=== PATIENT | male | born 1995 | race Caucasian/White ===

== ENCOUNTER 2016-08-19 10:08 | Emergency (ER) | payer BC, OTHER ==
[~2016-08-19] VITALS: Ht 190.5 cm; Wt 79.7 kg
[2016-08-19 10:26] VITALS: Ht 190.5 cm; Wt 79.7 kg
[2016-08-19] MEDS ORDERED: DEXAMETHASONE SOD INJ 10 MG/ML VIAL IV ONE (11:00)
[2016-08-19] MEDS ORDERED: SODIUM CHLORIDE 0.9% 1000ML 2,000 ML IV STA (11:00)
[2016-08-19] MEDS ORDERED: KETOROLAC TROMETHAMINE 30 MG/ML VIAL IV STA (11:00)
[2016-08-19] MEDS ORDERED: ACETAMINOPHEN 500 MG TAB PO STA (11:00)
[2016-08-19] MEDS ORDERED: DiphenhydrAMINE HCL 50 MG/ML VIAL IV STA (11:00)
[2016-08-19 11:03] LABS: BASO % 0.2 %; BASO ABS # 0.02 K/uL (0-0.2); COMPLETE YES; EOS % 0.4 %; HEMATOCRIT 45.9 % (42-52); IG% 0.3 %; LYMPH % 10.2 %; LYMPH ABS # 1.15 K/uL (1.2-3.4); MEAN CELL VOLUME 89.6 fL (80-100); MEAN CORPUSCULAR HEMOGLOBIN 30.7 pg (25-34); MEAN CORPUSCULAR HGB CONC 34.2 g/dl (32-36); MEAN PLATELET VOLUME 8.9 fL (7.4-10.4); MONO % 17.8 %; NEUT % 71.1 %; PLATELET COUNT 167 K/uL (130-400); RED BLOOD COUNT 5.12 M/uL (4.7-6.1)
--- NOTE | 2016-08-19 11:06 | EMERGENCY ROOM VISIT NOTE ---
History Report prepared by Nathalie: Abby Mccartney Under the Supervision of: Dr. Rad Hernandez M.D. First contact with patient: 10:53 Chief Complaint: FEVER Stated Complaint: FEVER, SPOTTING ON THROAT, FATIGUE History of Present Illness The patient is a 21 year old male who presents to the Emergency Room with complaints of a persistent fever that began a few days ago. He currently rates his discomfort as a 6/10 in severity. The patient states that he has been experiencing fever and chills the past several days and notes that his symptoms have been worsening. He states that last night he developed a sore throat last night that worsened. The patient states that he has been treating his Tylenol for his fever, noting that his last dose was at 0600 this morning. He additionally associates a headache, lymphadenopathy, and body aches with his symptoms today. The patient denies any neck stiffness, rhinorrhea, nausea, or vomiting. He states that he has a history of a tonsillectomy when he was [age] and denies any history of mono. The patient's girlfriend states that the patient was sick a few weeks ago, but states that he got better. The patient denies any sick contacts. Source of History: patient, spouse/significant other (girlfriend) Onset: a few days ago Position: other (global) Symptom Intensity: 6/10 Quality: other (fever) Timing: worsening, other (persistent) Associated Symptoms: + chills, + headache, + lymphadenopathy, + sorethroat, No nausea, No vomiting Note: Associated Symptoms: body aches. Review of Systems See HPI for pertinent positives & negatives. A total of 10 systems reviewed and were otherwise negative. Past Medical & Surgical Surgical Problems: (1) Hx of tonsillectomy Family History No pertinent family history stated. Social History Smoking Status: Never Smoker Marital Status: single Occupation Status: [employer] student Current/Historical Medications Scheduled Amoxicillin (Amoxil), 500 MG PO TID Prednisone (Prednisone), 50 MG PO DAILY Allergies Coded Allergies: No Known Allergies (Unverified , 08/19/16) Physical Exam Vital Signs Date Time Temp Pulse Resp B/P Pulse Ox O2 Delivery O2 Flow Rate FiO2 08/19/16 14:06 37.6 86 18 97/63 97 08/19/16 12:13 38.1 08/19/16 11:56 97 16 96/56 99 Room Air 08/19/16 10:26 38.2 100 18 122/75 99 Room Air Physical Exam GENERAL: Patient is in mild distress, uncomfortable appearing. Warm to touch. HEENT: Posterior oropharynx is erythematous, exudative. No acute trauma, normocephalic atraumatic, mucous membranes moist, no nasal congestion, no scleral icterus. NECK: Enlarged anterior neck lymph nodes, no meningitis findings. No stridor, trachea is midline. LUNGS: No dyspnea. Clear to auscultation and equal bilaterally. No wheeze, no rhonchi. HEART: Tachycardic rate and regular rhythm. No murmurs, rubs, gallops appreciated. ABDOMEN: Soft, nontender, bowel sounds positive, no masses appreciated, no peritonitis. BACK: No midline tenderness, no CVA tenderness EXTREMITIES: Normal motion all extremities, no cyanosis, no edema. NEUROLOGIC: Alert and oriented, no acute motor or sensory deficits, no focal weakness, cranial nerves grossly intact. SKIN: No rash, no jaundice, no diaphoresis. Medical Decision & Procedures Laboratory Results 08/19/16 10:38 Red Blood Count 5.12, Mean Corpuscular Volume 89.6, Mean Corpuscular Hemoglobin 30.7, Mean Corpuscular Hemoglobin Concent 34.2, Mean Platelet Volume 8.9, Neutrophils (%) (Auto) 71.1, Lymphocytes (%) (Auto) 10.2, Monocytes (%) (Auto) 17.8, Eosinophils (%) (Auto) 0.4, Basophils (%) (Auto) 0.2, Neutrophils # (Auto ) 8.05, Lymphocytes # (Auto) 1.15, Monocytes # (Auto) 2.01, Eosinophils # (Auto ) 0.04, Basophils # (Auto) 0.02 08/19/16 10:38 Test 08/19/16 10:38 08/19/16 10:40 White Blood Count 11.30 K/uL (4.8-10.8) Red Blood Count 5.12 M/uL (4.7-6.1) Hemoglobin 15.7 g/dL (14.0-18.0) Hematocrit 45.9 % (42-52) Mean Corpuscular Volume 89.6 fL (80-100) Mean Corpuscular Hemoglobin 30.7 pg (25-34) Mean Corpuscular Hemoglobin Concent 34.2 g/dl (32-36) Platelet Count 167 K/uL (130-400) Mean Platelet Volume 8.9 fL (7.4-10.4) Neutrophils (%) (Auto) 71.1 % Lymphocytes (%) (Auto) 10.2 % Monocytes (%) (Auto) 17.8 % Eosinophils (%) (Auto) 0.4 % Basophils (%) (Auto) 0.2 % Neutrophils # (Auto) 8.05 K/uL (1.4-6.5) Lymphocytes # (Auto) 1.15 K/uL (1.2-3.4) Monocytes # (Auto) 2.01 K/uL (0.11-0.59) Eosinophils # (Auto) 0.04 K/uL (0-0.5) Basophils # (Auto) 0.02 K/uL (0-0.2) RDW Standard Deviation 41.3 fL (36.4-46.3) RDW Coefficient of Variation 12.6 % (11.5-14.5) Immature Granulocyte % (Auto) 0.3 % Immature Granulocyte # (Auto) 0.03 K/uL (0.00-0.02) Anion Gap 10.0 mmol/L (3-11) Est Creatinine Clear Calc Drug Dose 94.1 ml/min Estimated GFR () 82.7 Estimated GFR (Non- 71.3 BUN/Creatinine Ratio 13.4 (10-20) Calcium Level 9.3 mg/dl (8.5-10.1) Total Bilirubin 0.7 mg/dl (0.2-1) Aspartate Amino Transf (AST/SGOT) 33 U/L (15-37) Alanine Aminotransferase (ALT/SGPT) 36 U/L (12-78) Alkaline Phosphatase 66 U/L (45-117) Total Protein 8.5 gm/dl (6.4-8.2) Albumin 4.5 gm/dl (3.4-5.0) Globulin 4.0 gm/dl (2.5-4.0) Albumin/Globulin Ratio 1.1 (0.9-2) Chemistry Specimen Hemolysis Monoscreen NEG (NEG) Influenza Type A Antigen Neg for Influ A (NEG) Influenza Type B Antigen Neg for Influ B (NEG) Laboratory results as reviewed by me. Medications Administered Medications (Trade) Dose Ordered Sig/Velia Route Start Time Stop Time Status Last Admin Dose Admin Diphenhydramine HCl (Benadryl Inj) 50 mg NOW STAT IV 08/19/16 11:00 08/19/16 11:02 DC 08/19/16 11:16 50 MG Ketorolac Tromethamine 30 mg 30 mg NOW STAT IV 08/19/16 11:00 08/19/16 11:02 DC 08/19/16 11:17 30 MG Sodium Chloride (Nss 1000ml) 2,000 ml @ 999 mls/hr Q2H1M STAT IV 08/19/16 11:00 08/19/16 13:07 DC 08/19/16 11:16 999 MLS/HR Acetaminophen (Tylenol Tab) 1,000 mg NOW STAT PO 08/19/16 11:00 08/19/16 11:02 DC 08/19/16 11:17 1,000 MG Dexamethasone Sodium Phosphate (Decadron Inj) 10 mg NOW ONCE IV 08/19/16 11:00 08/19/16 11:02 DC 08/19/16 11:16 10 MG Ceftriaxone Sodium (Rocephin Inj) 1 gm NOW STAT IV 08/19/16 12:25 08/19/16 12:27 DC 08/19/16 12:39 1 GM ED Course 1054: The patient was evaluated in room C2. A complete history and physical exam was performed. 1100: Ordered Decadron Inj 10 mg IV, Tylenol Tab 1000 mg PO, Sodium Chloride 2000 ml @ 999 mls/hr IV, Toradol Inj 30 mg IV, Benadryl Inj 50 mg IV. 1225: Ordered Rocephin Inj 1 gm IV. 1226: I reevaluated the patient and he is feeling much better. I discussed the exam findings with him and I discussed the treatment plan. He is agreeable to try antibiotics and steroids as an outpatient. He is ready to go home. Medical Decision Differential: Viral, Tonsillitis, Strep, Moffat, Peritonsillar Abscess, Retropharyngeal Abscess, Otitis, Pneumonia, Influenza, amongst other pathologies entertained. 21 yr old male with exudative pharyngitis associated with fevers, chills, anterior neck lymphadenopathy. Much improved with above. Not septic appearing. No evidence of meningitis. Tonsils removed previously. No evidence of retropharyngeal abscess. Moffat negative. Strep is negative as well. Given all these findings however it seems prudent to start ABX along with steroids for acute pharyngitis. He is looking well, feeling much improved. He is a bit renal insufficient which I assume is secondary to infectious etiology but will add on fluids. Stable no distress and feels comfortable going home. Discussed RTED if worsening or other concerns. Impression Primary Impression: Pharyngitis, acute Additional Impressions: Febrile illness, acute Renal insufficiency Scribe Attestation The scribe's documentation has been prepared under my direction and personally reviewed by me in its entirety. I confirm that the note above accurately reflects all work, treatment, procedures, and medical decision making performed by me. Departure Information Dispostion Home / Self-Care Prescriptions Prednisone (Prednisone) 50 Mg Tab 50 MG PO DAILY for 4 Days, #4 TAB Prov: Rad Hernandez M.D. 08/19/16 Amoxicillin (AMOXIL) 500 Mg Cap 500 MG PO TID, #21 CAP Prov: Rad Hernandez M.D. 08/19/16 Referrals [facility] Services Forms HOME CARE DOCUMENTATION FORM, IMPORTANT VISIT INFORMATION, Work Instructions Patient Instructions ED Strep Pharyngitis Anthony, My [facility] Additional Instructions Keep well hydrated and avoid over exertion. Follow up with your primary provider or [facility] in the next few days for recheck. Problem Qualifiers Primary Impression: Pharyngitis, acute Pharyngitis/tonsillitis etiology: unspecified etiology Qualified Codes: J02.9 - Acute pharyngitis, unspecified
[2016-08-19 11:16] LABS: BUN/CREATININE RATIO 13.4 (10-20); CALCIUM 9.3 mg/dl (8.5-10.1); CREATININE 1.4 mg/dl (0.60-1.40); POTASSIUM 4.6 mmol/L (3.5-5.1)
[2016-08-19 11:27] LABS: ALB/GLOB RATIO 1.1 (0.9-2)
[2016-08-19] MEDS ORDERED: CEFTRIAXONE SOD INJ 1 GM ADDVIAL IV STA (12:25)
[2016-08-19] MEDS ORDERED: PRED50TA PO (12:30)
[2016-08-19] MEDS ORDERED: AMOX500C3 PO (12:30)
[2016-08-19 14:06] VITALS: BP 97/63; PULSE 86; TEMP 37.6; O2SAT 97
== END 2016-08-19 14:07 | disposition home or self-care (01) ==
LOC: C.EDB 10:11 → C.EDC 14:07
DX: J02.9 Acute pharyngitis, unspecified (principal); N28.9 Disorder of kidney and ureter, unspecified; Z98.890 Other specified postprocedural states

== ENCOUNTER 2016-08-22 11:50 | Emergency (ER) | payer OTHER ==
[~2016-08-22] VITALS: Ht 190.5 cm; Wt 78.8 kg
[~2016-08-22 11:50] MED LIST: AMOX500C3 PO; PRED50TA PO
[2016-08-22 12:03] VITALS: TEMP 37.7; Ht 190.5 cm; Wt 78.8 kg
[2016-08-22] MEDS ORDERED: OPTIRAY 320 IV PRN (13:45)
[2016-08-22 13:55] LABS: BASO % 0.3 %; BASO ABS # 0.02 K/uL (0-0.2); COMPLETE YES; EOS % 0.1 %; HEMATOCRIT 41.2 % (42-52); IG% 0.3 %; LYMPH % 17.6 %; LYMPH ABS # 1.31 K/uL (1.2-3.4); MEAN CELL VOLUME 90.2 fL (80-100); MEAN CORPUSCULAR HGB CONC 33.3 g/dl (32-36); MEAN PLATELET VOLUME 8.8 fL (7.4-10.4); MONO % 20.5 %; NEUT % 61.2 %; PLATELET COUNT 156 K/uL (130-400); RED BLOOD COUNT 4.57 M/uL (4.7-6.1); WHITE BLOOD COUNT 7.45 K/uL (4.8-10.8)
[2016-08-22 14:10] LABS: BUN/CREATININE RATIO 13.8 (10-20); CALCIUM 8.4 mg/dl (8.5-10.1); CREATININE 1.2 mg/dl (0.60-1.40); POTASSIUM 3.7 mmol/L (3.5-5.1)
--- NOTE | 2016-08-22 14:35 | DIAGNOSTIC IMAGING REPORT ---
CT soft tissue neck SOFT TISSUE NECK WITH CLINICAL HISTORY: throat pain dysphagia TECHNIQUE: Transaxial acquisition with multi axial reformatted images COMPARISON STUDY: None FINDINGS: Major salivary glands including parotid and submandibular glands are unremarkable. There is moderate fullness of the adenoids as well as tonsillar regions. There is no evidence for peritonsillar abscess or collection. There is no significant airway compromise. Chronic and subglottic regions are unremarkable. There is no significant cervical adenopathy. Thyroid is symmetric and unremarkable. Pulmonary apices are clear. IMPRESSION: Mild prominence of the adenoids as well as tonsils. 2. No evidence for abscess collection or airway compromise. Electronically signed by: Jose Yepez M.D. 08/22/2016 2:34 PM Dictated Date/Time: 08/22/2016 2:30 PM
[2016-08-22] MEDS ORDERED: LIDO2SOL19 PO (15:06)
[2016-08-22 15:23] VITALS: BP 121/71; PULSE 94; O2SAT 100
--- NOTE | 2016-08-24 17:34 | EMERGENCY ROOM VISIT NOTE ---
History First contact with patient: 12:26 Chief Complaint: SORETHROAT Stated Complaint: SWELLING/SPOTTING IN THROAT, CP, COUGH History of Present Illness The patient is a 21 year old white male who presents to the Emergency Room with complaints of worsening sore throat. He was seen here 3 days ago and was diagnosed with acute pharyngitis. He was placed on amoxicillin. Strep culture came back positive for group G beta-hemolytic strep. Influenza and Monospot were negative. He states he is getting worse. He has now developed some respiratory type symptoms with a cough. He has had some chills and sweats but has not taken his temperature. No nausea or vomiting. No diarrhea. No rash. He did have some renal insufficiency at his previous visit 3 days ago, but has not arranged follow-up for this. Review of Systems REVIEW OF SYSTEM: HEENT: No dizziness, visual problems, hearing loss, or tinnitus. PULMONARY: No shortness of breath, sputum production or hemoptysis. CARDIOVASCULAR: No chest pain, palpitations, shortness of breath or peripheral edema. GASTROINTESTINAL: No diarrhea, constipation, nausea, vomiting, or abdominal pain. GENITOURINARY: No dysuria, frequency, urgency or nocturia. NEUROLOGIC: No weakness, muscle tenderness, epilepsy or history of neurological problems. MUSCULOSKELETAL: No history of joint tenderness/swelling. No history of arthritis or arthralgias. SKIN: No rashes or lesions. PSYCHIATRIC: No history of depression or mental illness. ENDOCRINE: No history of diabetes, thyroid disorders, or abnormal hair growth. Past Medical/Surgical History Surgical Problems: (1) Hx of tonsillectomy Family History Unchanged from previous exam Social History Smoking Status: Never Smoker Smokeless Tobacco Use: No Alcohol Use: occasionally Drug Use: none Marital Status: single Occupation Status: [employer] student Current/Historical Medications Scheduled Amoxicillin (Amoxil), 500 MG PO TID Scheduled PRN Lidocaine Hcl (Mouth-Throat) (Lidocaine Viscous), 5 ML PO Q6H PRN for Pain Allergies Coded Allergies: No Known Allergies (Unverified , 08/22/16) Physical Exam Vital Signs Date Time Temp Pulse Resp B/P Pulse Ox O2 Delivery O2 Flow Rate FiO2 08/22/16 15:23 94 16 121/71 100 Room Air 08/22/16 14:14 79 16 127/70 100 Room Air 08/22/16 12:03 100 Room Air 08/22/16 12:03 37.7 76 18 156/86 100 Pain Rating (0-10): 2.0 Physical Exam Gen.: Well-developed, well-nourished, young white male, in obvious discomfort. No acute distress. Sitting on a bed. Alert and oriented. Skin:Warm and dry with good turgor. No rashes or lesions. No ecchymosis or erythema. The patient is not diaphoretic. No abrasions. HEENT: Normocephalic atraumatic. Eyes PERRLA, EOMI. No conjunctiva or scleral injection. Ears TMs intact bilaterally with good light reflexes. No erythema or bulging. No hemotympanum. Canals are patent. Nares patent bilaterally without turbinate enlargement. No significant drainage. No epistaxis. Oropharynx with erythema and exudate. Numerous small ulcerations are present on the posterior oropharynx. He appears to have some slight swelling of the right oropharynx. No evidence of peritonsillar abscess. Uvula midline, oral mucosa moist. No lesions present. Lymphatics are palpated with anterior enlargement and tenderness but no posterior chain enlargement or tenderness. Heart: Heart RRR. No MGR. Peripheral pulses are 2+. Lungs: Lungs are clear to auscultation. No crackles rhonchi or wheezing. Good air movement. The patient is able to take a deep breath. Medical Decision & Procedures ER Provider Diagnostic Interpretation: CT scan imaging of the soft tissue of the neck with IV contrast was obtained. This was read by radiology as negative for abscess collection or airway compromise. Mild prominence of the adenoids. Laboratory Results 08/22/16 13:38 Red Blood Count 4.57, Mean Corpuscular Volume 90.2, Mean Corpuscular Hemoglobin 30.0, Mean Corpuscular Hemoglobin Concent 33.3, Mean Platelet Volume 8.8, Neutrophils (%) (Auto) 61.2, Lymphocytes (%) (Auto) 17.6, Monocytes (%) (Auto) 20.5, Eosinophils (%) (Auto) 0.1, Basophils (%) (Auto) 0.3, Neutrophils # (Auto ) 4.56, Lymphocytes # (Auto) 1.31, Monocytes # (Auto) 1.53, Eosinophils # (Auto ) 0.01, Basophils # (Auto) 0.02 08/22/16 13:38 Test 08/22/16 13:38 White Blood Count 7.45 K/uL (4.8-10.8) Red Blood Count 4.57 M/uL (4.7-6.1) Hemoglobin 13.7 g/dL (14.0-18.0) Hematocrit 41.2 % (42-52) Mean Corpuscular Volume 90.2 fL (80-100) Mean Corpuscular Hemoglobin 30.0 pg (25-34) Mean Corpuscular Hemoglobin Concent 33.3 g/dl (32-36) Platelet Count 156 K/uL (130-400) Mean Platelet Volume 8.8 fL (7.4-10.4) Neutrophils (%) (Auto) 61.2 % Lymphocytes (%) (Auto) 17.6 % Monocytes (%) (Auto) 20.5 % Eosinophils (%) (Auto) 0.1 % Basophils (%) (Auto) 0.3 % Neutrophils # (Auto) 4.56 K/uL (1.4-6.5) Lymphocytes # (Auto) 1.31 K/uL (1.2-3.4) Monocytes # (Auto) 1.53 K/uL (0.11-0.59) Eosinophils # (Auto) 0.01 K/uL (0-0.5) Basophils # (Auto) 0.02 K/uL (0-0.2) RDW Standard Deviation 41.6 fL (36.4-46.3) RDW Coefficient of Variation 12.7 % (11.5-14.5) Immature Granulocyte % (Auto) 0.3 % Immature Granulocyte # (Auto) 0.02 K/uL (0.00-0.02) Anion Gap 11.0 mmol/L (3-11) Est Creatinine Clear Calc Drug Dose 108.5 ml/min Estimated GFR () 99.6 Estimated GFR (Non- 85.9 BUN/Creatinine Ratio 13.8 (10-20) Calcium Level 8.4 mg/dl (8.5-10.1) Monoscreen NEG (NEG) CBC, PRP, and mono screen were obtained. They're unremarkable. No elevation in white count. ED Course Patient and his significant other were educated regarding today's findings. Conservative care measures were discussed. IV was established. Labs were obtained. CT scan imaging was obtained. His results are unremarkable. Though his throat does appear somewhat worse, vitals and labs have improved. He was instructed to finish his amoxicillin. Continue with Tylenol and Motrin every 6 hours as needed for discomfort. Prescription was provided for viscous lidocaine to be mixed with a tablespoon of Maalox for gargling every 6 hours to improve his comfort. Cepacol lozenges may also improve his comfort. Follow-up with his PCP as needed. Return to the ED for any other concerns. Patient was seen in conjunction with Dr. Hernandez, who also evaluated the patient and concurred with today's diagnosis and treatment plan. Strep throat handout was provided. Note was provided to be out of work today and tomorrow. Medical Decision He was reassured that I do not suspect mono, influenza, peritonsillar abscess, oral abscess, retropharyngeal abscess, or mumps. Impression Primary Impression: Acute streptococcal pharyngitis Departure Information Dispostion Home / Self-Care Condition GOOD Prescriptions Lidocaine Hcl (Mouth-Throat) (LIDOCAINE VISCOUS) 2 % Elisabeth 5 ML PO Q6H Y for Pain for 5 Days, #100 ML Prov: Hasmukh Grant,P.A. 08/22/16 Forms HOME CARE DOCUMENTATION FORM, Days off work: 2 Work Instructions, Return To Work: 2 days IMPORTANT VISIT INFORMATION Patient Instructions Strep Throat, My [facility] Additional Instructions Finish your amoxicillin Continue with Tylenol and Motrin every 6 hours as needed for discomfort Mix teaspoon of viscous lidocaine with a tablespoon of Maalox and gargle up to every 6 hours Cepacol lozenges may also improve your comfort Follow-up with your PCP as needed Work Instructions Return To Work: 2 days
== END 2016-08-22 15:40 | disposition home or self-care (01) ==
LOC: C.EDB 11:52 → C.EDC 15:40
DX: J02.0 Streptococcal pharyngitis (principal)

== ENCOUNTER 2017-04-05 21:53 | Emergency (ER) | payer OTHER ==
[~2017-04-05] VITALS: Ht 190.5 cm; Wt 80.5 kg
[2017-04-05 22:03] VITALS: TEMP 36.9; Ht 190.5 cm; Wt 80.5 kg
[2017-04-05] MEDS ORDERED: KETOROLAC TROMETHAMINE 30 MG/ML VIAL IV STA (22:40)
[2017-04-05 23:08] LABS: BASO % 0.5 %; BASO ABS # 0.04 K/uL (0-0.2); COMPLETE YES; EOS % 3.4 %; HEMATOCRIT 40.8 % (42-52); IG% 0.3 %; LYMPH % 31.6 %; MEAN CELL VOLUME 88.9 fL (80-100); MEAN CORPUSCULAR HEMOGLOBIN 30.5 pg (25-34); MEAN CORPUSCULAR HGB CONC 34.3 g/dl (32-36); MEAN PLATELET VOLUME 9.2 fL (7.4-10.4); MONO % 8.2 %; PLATELET COUNT 223 K/uL (130-400); RED BLOOD COUNT 4.59 M/uL (4.7-6.1)
[2017-04-05 23:31] LABS: BUN/CREATININE RATIO 19.2 (10-20); CALCIUM 9.3 mg/dl (8.5-10.1); CREATININE 1.2 mg/dl (0.60-1.40); POTASSIUM 3.6 mmol/L (3.5-5.1)
[2017-04-05 23:42] LABS: ALB/GLOB RATIO 1.2 (0.9-2); THYROID STIMULATING HORMONE 3.47 uIu/ml (0.300-4.500)
--- NOTE | 2017-04-06 01:36 | EMERGENCY ROOM VISIT NOTE ---
History First contact with patient: 22:30 Chief Complaint: NEURO SYMPTOMS Stated Complaint: HEAD COMPRESSED, LIGHTHEADED, CONFUSED Nursing Triage Summary: patient with "crushing" head pressure, states also was having tingling and numbness in back, legs, lips. states all started approx 1 hour ago History of Present Illness The patient is a 22 year old male who presents to the Emergency Room with complaints of head pressure. The patient states that this began a few hours prior to arrival. He reports a sensation of pressure in his head which feels like a squeezing sensation. He rates the discomfort a 7/10. He states that when this began, he felt like he was having difficulty putting words together. He reports that he had some shaking. He states that this has resolved, but he still has the pressure. He denies any previous history of similar symptoms. He denies any recent head trauma. He states that his legs were going numb earlier in the day and describes this as a feeling of pins and needles. He reports some associated blurred vision and nausea. He denies any history of migraines or headache disorders. Review of Systems A complete 10 point review of systems was reviewed with the patient with pertinent positives and negatives as per history of present illness. All else were negative. Past Medical/Surgical History Surgical Problems: (1) Hx of tonsillectomy Social History Smoking Status: Never Smoker Alcohol Use: occasionally Drug Use: none Marital Status: single Occupation Status: [employer] student Current/Historical Medications No Active Prescriptions or Reported Meds Physical Exam Vital Signs Date Time Temp Pulse Resp B/P (MAP) Pulse Ox O2 Delivery O2 Flow Rate FiO2 04/06/17 01:53 56 18 119/75 100 04/05/17 23:11 53 18 129/67 99 Room Air 04/05/17 22:03 36.9 72 16 120/69 99 Room Air Physical Exam VITALS: Vitals are noted on the nurse's note and reviewed by myself. Vital signs stable. GENERAL: This is a 22-year-old male, in no acute distress, nondiaphoretic, well- developed well-nourished. SKIN: The skin was without rashes, erythema, edema, or bruising. There is no tenting of the skin. Capillary reflex less than 2 seconds. HEAD: Normocephalic atraumatic. EARS: External auditory canals clear, tympanic membranes pearly mcintyre without erythema or effusion bilaterally. EYES: Pupils equal round and reactive to light and accommodation. Conjunctivae without injection, sclerae without icterus. Extraocular movements intact. MOUTH: Mucous membranes moist. Tonsils are not enlarged. Pharynx without erythema or exudate. NECK: Supple without nuchal rigidity. No lymphadenopathy. HEART: Regular rate and rhythm without murmurs gallops or rubs. LUNGS: Clear to auscultation bilaterally without wheezes, rales or rhonchi. MUSCULOSKELETAL: Full range of motion throughout. Strength 5/5 throughout. NEURO: Patient was alert and oriented to person place and time. Normal sensation to light and sharp touch. Deep tendon reflexes 2+ throughout. No focal neurological deficits. Normal finger to nose testing. Negative Romberg and pronator drift. Medical Decision & Procedures ER Provider Diagnostic Interpretation: CT HEAD: No acute intracranial process. Large adenoids. Radiologist: Cintia Rubalcava MD Laboratory Results 04/05/17 22:32 Red Blood Count 4.59, Mean Corpuscular Volume 88.9, Mean Corpuscular Hemoglobin 30.5, Mean Corpuscular Hemoglobin Concent 34.3, Mean Platelet Volume 9.2, Neutrophils (%) (Auto) 56.0, Lymphocytes (%) (Auto) 31.6, Monocytes (%) (Auto) 8.2, Eosinophils (%) (Auto) 3.4, Basophils (%) (Auto) 0.5, Neutrophils # (Auto) 4.26, Lymphocytes # (Auto) 2.40, Monocytes # (Auto) 0.62, Eosinophils # (Auto) 0.26, Basophils # (Auto) 0.04 04/05/17 22:32 Test 04/05/17 22:32 White Blood Count 7.60 K/uL (4.8-10.8) Red Blood Count 4.59 M/uL (4.7-6.1) Hemoglobin 14.0 g/dL (14.0-18.0) Hematocrit 40.8 % (42-52) Mean Corpuscular Volume 88.9 fL (80-100) Mean Corpuscular Hemoglobin 30.5 pg (25-34) Mean Corpuscular Hemoglobin Concent 34.3 g/dl (32-36) Platelet Count 223 K/uL (130-400) Mean Platelet Volume 9.2 fL (7.4-10.4) Neutrophils (%) (Auto) 56.0 % Lymphocytes (%) (Auto) 31.6 % Monocytes (%) (Auto) 8.2 % Eosinophils (%) (Auto) 3.4 % Basophils (%) (Auto) 0.5 % Neutrophils # (Auto) 4.26 K/uL (1.4-6.5) Lymphocytes # (Auto) 2.40 K/uL (1.2-3.4) Monocytes # (Auto) 0.62 K/uL (0.11-0.59) Eosinophils # (Auto) 0.26 K/uL (0-0.5) Basophils # (Auto) 0.04 K/uL (0-0.2) RDW Standard Deviation 42.5 fL (36.4-46.3) RDW Coefficient of Variation 13.1 % (11.5-14.5) Immature Granulocyte % (Auto) 0.3 % Immature Granulocyte # (Auto) 0.02 K/uL (0.00-0.02) Anion Gap 9.0 mmol/L (3-11) Est Creatinine Clear Calc Drug Dose 109.9 ml/min Estimated GFR () 98.9 Estimated GFR (Non- 85.3 BUN/Creatinine Ratio 19.2 (10-20) Calcium Level 9.3 mg/dl (8.5-10.1) Magnesium Level 2.0 mg/dl (1.8-2.4) Total Bilirubin 0.5 mg/dl (0.2-1) Aspartate Amino Transf (AST/SGOT) 26 U/L (15-37) Alanine Aminotransferase (ALT/SGPT) 22 U/L (12-78) Alkaline Phosphatase 69 U/L (45-117) Total Protein 7.4 gm/dl (6.4-8.2) Albumin 4.1 gm/dl (3.4-5.0) Globulin 3.3 gm/dl (2.5-4.0) Albumin/Globulin Ratio 1.2 (0.9-2) Thyroid Stimulating Hormone (TSH) 3.470 uIu/ml (0.300-4.500) Chemistry Specimen Hemolysis Medications Administered Medications (Trade) Dose Ordered Sig/Velia Route Start Time Stop Time Status Last Admin Dose Admin Ketorolac Tromethamine (Toradol Inj) 30 mg NOW STAT IV 04/05/17 22:40 04/05/17 22:41 DC 04/05/17 22:40 30 MG Medical Decision The differential diagnosis includes acute intracranial bleed, meningitis, encephalitis, mass or mass effect, sinusitis, infection, tumor, headache, temporal arteritis and carbon monoxide exposure, and migraine. The patient is a 22-year-old male who presents today complaining of had pressure and some difficulty with his speech. The patient is speaking clearly and does not seem to have any difficulty at this time. Labs revealed no leukocytosis, anemia or concerning electrolyte abnormalities. CT of the head was performed and read by radiology with no acute findings. Neurological exam is completely normal. Patient did have some relief after Toradol. Given that the patient has no neuro findings at this time, I feel that he is stable for discharge home but will need close follow-up with his primary care provider. This may be secondary to an atypical migraine. Patient was advised to return here for any worsening or concerning symptoms. The patient's case was reviewed with Dr. Forte, ED attending physician, who agreed with my assessment and treatment plan. Based on the patient's presentation and work up, I feel the patient is stable for outpatient treatment. The patient was educated to return to the emergency department for any worsening of their current condition or new/concerning symptoms. He will follow up with his PCP. Medication Reconcilliation Current Medication List: was personally reviewed by me Blood Pressure Screening Patient's blood pressure: Normal blood pressure Impression Primary Impression: Pressure in head Departure Information Dispostion Home / Self-Care Condition GOOD Prescriptions No Active Prescriptions or Reported Meds Referrals Rafael Hinton D.O. (PCP) Patient Instructions My [facility] Additional Instructions For pain control, you can use the following [id number] medicines (if >12 yo): - Regular strength (325mg/tab) Tylenol (acetaminophen) 2 tabs every 4-6 hours as needed. Do not exceed 12 tablets in a 24 hour period. Avoid taking more than 4 grams (4000 mg) of Tylenol per day. This includes any other sources of acetaminophen you may take on a regular basis. - Regular strength (200 mg/tab) Advil (ibuprofen) 1-2 tabs every 4-6 hours as needed. Do not exceed a dose of 3200 mg per day. Call your primary care provider tomorrow morning to schedule a follow-up. Return to the Emergency Department if your current symptoms worsen despite treatment course outlined above, or if you develop any of the following symptoms : intractable pain despite aforementioned treatment course, visual disturbances , loss of vision, unilateral weakness or facial drooping, slurring of speech, loss of coordination, or loss of consciousness.
[2017-04-06 01:53] VITALS: BP 119/75; PULSE 56; O2SAT 100
--- NOTE | 2017-04-06 07:11 | DIAGNOSTIC IMAGING REPORT ---
HEAD WITHOUT CONTRAST (CT) CLINICAL HISTORY: 22 years-old Male presenting with head pressure, difficulty talking. TECHNIQUE: Multidetector CT imaging of the head was performed without the use of intravenous contrast. IV contrast: None. A dose lowering technique was used consistent with the principles of ALARA (as low as reasonably achievable). COMPARISON: None. CT DOSE (mGy.cm): The estimated cumulative dose is 537.48 mGy.cm. FINDINGS: Tip Puncher topogram: Unremarkable. Ventricles and sulci normal in size. Brain parenchyma normal in appearance with preserved mcintyre-white differentiation. No mass effect or midline shift. No hemorrhage or acute territorial infarct. No extra-axial fluid collection. Paranasal sinuses and mastoid air cells clear. Prominent adenoidal tissue in the nasopharynx. Calvarium intact. IMPRESSION: 1. No acute intracranial pathology. Electronically signed by: Bentley Mendez M.D. 04/06/2017 7:10 AM Dictated Date/Time: 04/06/2017 7:08 AM
== END 2017-04-06 01:54 | disposition home or self-care (01) ==
LOC: C.EDB 21:54 → C.EDA 04-06 01:54
DX: R51 Headache (principal); Z98.890 Other specified postprocedural states

== ENCOUNTER 2017-07-07 13:31 | Emergency (ER) | payer OTHER ==
[~2017-07-07] VITALS: Ht 190.5 cm; Wt 83.4 kg
[2017-07-07 13:35] VITALS: TEMP 36.8; Ht 190.5 cm; Wt 83.4 kg
[2017-07-07] MEDS ORDERED: ACET-1311 PO (14:34)
[2017-07-07] MEDS ORDERED: IBUP-1459 PO (14:35)
[2017-07-07] MEDS ORDERED: KETOROLAC TROMETHAMINE 30 MG/ML VIAL IV PRN (14:45)
[2017-07-07] MEDS ORDERED: DEXAMETHASONE INJ 8 MG in SYRINGE 0 ML IV ONE (14:45)
[2017-07-07] MEDS ORDERED: SODIUM CHLORIDE 0.9% 1000ML 1,000 ML IV ONE (14:45)
[2017-07-07 15:03] LABS: BASO % 0.3 %; BASO ABS # 0.02 K/uL (0-0.2); EOS % 1.1 %; EOS ABS # 0.08 K/uL (0-0.5); HEMATOCRIT 43.9 % (42-52); HEMOGLOBIN 15.1 g/dL (14.0-18.0); IG# 0.01 K/uL (0.00-0.02); LYMPH % 14.4 %; LYMPH ABS # 1.09 K/uL (1.2-3.4); MEAN CELL VOLUME 91.6 fL (80-100); MEAN CORPUSCULAR HEMOGLOBIN 31.5 pg (25-34); MEAN CORPUSCULAR HGB CONC 34.4 g/dl (32-36); MEAN PLATELET VOLUME 9.6 fL (7.4-10.4); MONO % 24.2 %; MONO ABS # 1.83 K/uL (0.11-0.59); NEUT % 59.9 %; NEUT ABS # 4.52 K/uL (1.4-6.5); PLATELET COUNT 148 K/uL (130-400); RED CELL DISTRIBUTION WIDTH SD 40.6 fL (36.4-46.3); WHITE BLOOD COUNT 7.55 K/uL (4.8-10.8)
[2017-07-07 15:27] LABS: CALCIUM 8.9 mg/dl (8.5-10.1); CREATININE 1.13 mg/dl (0.60-1.40); POTASSIUM 3.6 mmol/L (3.5-5.1)
--- NOTE | 2017-07-07 15:49 | DIAGNOSTIC IMAGING REPORT ---
CHEST 2 VIEWS ROUTINE CLINICAL HISTORY: cough, fever dyspnea COMPARISON STUDY: No previous studies for comparison. FINDINGS: The bones soft tissues and hemidiaphragms are normal. The cardiomediastinal silhouette is normal. The lungs are clear. The pulmonary vasculature is normal. IMPRESSION: Negative chest. The above report was generated using voice recognition software. It may contain grammatical, syntax or spelling errors. Electronically signed by: Jose Yepez M.D. 07/07/2017 3:48 PM Dictated Date/Time: 07/07/2017 3:47 PM
[2017-07-07 16:50] VITALS: BP 118/72; PULSE 90; O2SAT 100
--- NOTE | 2017-07-08 22:12 | EMERGENCY ROOM VISIT NOTE ---
ED Visit Note First contact with patient: 13:42 Chief Complaint: Throat pain, blisters in my throat, body aches and cough. History of Present Illness: Mr. Mak is a 22-year-old white male who ambulates into the ED accompanied by his parents complaining of throat pain, cough and body aches. Historically patient reports he is status post tonsillectomy. Patient reports his symptoms started approximately one week ago with a sore throat. He reports while looking at his throat that the start of the symptoms he saw a red blisters. Then he quickly fevers of 101F orally, diaphoresis, intermittent nausea without vomiting. He then reports on day 3 of his illness he started developing sharp pains throughout his body; back, legs, arms but excluding extremities. On day 4 of his illness he reports he developed nasal congestion, headache, plugged ears, weakness, increased urinary frequency, productive cough of a greenish sputum, intermittent chest pain and fatigue. On days 5 and 6 of his illness he was seen at an urgent care center and was diagnosed with acute viral illness. Currently he is complaining of severe throat pain, body pain and fevers. He has difficulty describing his throat pain but reports his body pains are sharp and they are located primarily in the back but also the extremities. He rates his discomfort 10/10. He has not identified any aggravating or alleviating factors related to his pain. He reports he has been alternating ibuprofen and acetaminophen every 3 hours without relief of his discomfort. Associated with his pains he continues to report that he is intermittently nauseated, he continues to have a productive cough and a decreased appetite. He denies skin eruptions, skin color changes, dizziness, lightheadedness, visual changes, hearing changes, difficulty speaking, difficulty swallowing, drooling, painful talking, neck stiffness, chest pain, shortness of breath, hemoptysis, palpitations, orthopnea, dependent edema, previous clots, claudication, cramping, recent surgery/inactivity/extended travel, wheezing, diarrhea, constipation, urinary symptoms, hematuria, joint pains, recent insect bites. Review of Systems: As noted above in history of present illness. All body systems were reviewed and found to be negative as noted above. Past Medical History: As noted above. Current Medications: Patient denies. Allergies to Medications: Patient denies. Social History: Patient is currently employed; he feels safe in his home environment; he admits to tobacco and alcohol use. Physical Examination: Vital Signs: Date Time Temp Pulse Resp B/P (MAP) Pulse Ox O2 Delivery O2 Flow Rate FiO2 07/07/17 16:50 90 20 118/72 100 07/07/17 15:15 75 20 121/58 98 Room Air 07/07/17 13:35 36.8 86 18 135/75 100 Room Air GENERAL: 22-year-old male in mild to moderate distress due to pain, nontoxic- appearing, afebrile and hemodynamically stable. NEUROLOGICAL: Awake, alert and oriented to person, place and time. Answering questions appropriately and following commands. Normal gait. Good hand eye coordination. No focal motor or sensory deficits. SKIN: Warm, dry and pink. No soft tissue eruptions or trauma noted. HEENT: Atraumatic and normocephalic. No erythema or tenderness over the frontal or maxillary sinuses. External ears are nontender. Auditory canals are pink and patent. Tympanic membranes are not erythematous or bulging. PERRLA. Sclera white and conjunctiva pink without drainage. No drainage from naris with audible congestion. Oral cavity moist and pink. Airway patent. Speech is normal and clear. Uvula is midline and no abscesses are seen. Pharynx is moderately erythematous and minimally edematous. Palate is also mildly erythematous with a petechiae-like rash No exudative materials or blisters were seen. Mild bilateral anterior cervical lymphadenopathy. No posterior lymphadenopathy. Trachea midline. No jugular venous distention. No laryngeal tenderness. No auditory auscultatory stridor. BACK: No tenderness over the bony spine. No tenderness throughout the paraspinous muscles. No meningismus. Full range of motion of the cervical spine. No CVA tenderness. THORAX: Lungs sounds are clear to auscultation and equal bilaterally with symmetrical chest wall. No wheezing, rales or rhonchi. No crepitus, tenderness , subcutaneous air or deformities noted. HEART: Regular rate and rhythm. No gallops, rubs or murmurs are appreciated. ABDOMEN: Flat, soft and nontender. Positive bowel sounds in all quadrants. No guarding, rigidity or organomegaly. EXTREMITIES: Moves all extremities well on command and with purpose. All distal neurovascular statuses are intact and equal bilaterally. No calf tenderness or cords. ED Course: Patient is assessed as noted above. Patient's medication list was reviewed. Laboratory Testing: Test 07/07/17 14:50 Range/Units White Blood Count 7.55 4.8-10.8 K/uL Red Blood Count 4.79 4.7-6.1 M/uL Hemoglobin 15.1 14.0-18.0 g/dL Hematocrit 43.9 42-52 % Mean Corpuscular Volume 91.6 80-100 fL Mean Corpuscular Hemoglobin 31.5 25-34 pg Mean Corpuscular Hemoglobin Concent 34.4 32-36 g/dl Platelet Count 148 130-400 K/uL Mean Platelet Volume 9.6 7.4-10.4 fL Neutrophils (%) (Auto) 59.9 % Lymphocytes (%) (Auto) 14.4 % Monocytes (%) (Auto) 24.2 % Eosinophils (%) (Auto) 1.1 % Basophils (%) (Auto) 0.3 % Neutrophils # (Auto) 4.52 1.4-6.5 K/uL Lymphocytes # (Auto) 1.09 1.2-3.4 K/uL Monocytes # (Auto) 1.83 0.11-0.59 K/uL Eosinophils # (Auto) 0.08 0-0.5 K/uL Basophils # (Auto) 0.02 0-0.2 K/uL RDW Standard Deviation 40.6 36.4-46.3 fL RDW Coefficient of Variation 12.0 11.5-14.5 % Immature Granulocyte % (Auto) 0.1 % Immature Granulocyte # (Auto) 0.01 0.00-0.02 K/uL Sodium Level 138 136-145 mmol/L Potassium Level 3.6 3.5-5.1 mmol/L Chloride Level 107 98-107 mmol/L Carbon Dioxide Level 26 21-32 mmol/L Anion Gap 5.0 3-11 mmol/L Blood Urea Nitrogen 15 7-18 mg/dl Creatinine 1.13 0.60-1.40 mg/dl Est Creatinine Clear Calc Drug Dose 121.0 ml/min Estimated GFR () 106.3 Estimated GFR (Non- 91.8 BUN/Creatinine Ratio 13.3 10-20 Random Glucose 69 70-99 mg/dl Calcium Level 8.9 8.5-10.1 mg/dl Monoscreen NEG NEG Strep Screen: Negative. Cultures pending. Patient was offered influenza testing and refused. Chest X-Rays: Were read by myself and the radiologist showing no acute infiltrates, effusions or pneumothorax. Normal heart silhouette and bony anatomy. Patient was hydrated with normal saline and he received 30 mg of Toradol IV and 8 mg of Decadron IV for his symptoms. Patient was reassessed multiple times during his stay in the emergency department. Patient was educated about today's findings and instructed on his treatment plan ; he verbalized understanding and agreement with this plan. Clinical Impression: Acute pharyngitis. Decision-Making: Patient discharged home in stable condition accompanied by his parents; prior to departure he was reassessed and subjectively reported he was feeling better and rated his discomfort 2/10. Disposition: Patient discharged home in stable condition accompanied by his parents; prior to departure he was reassessed and subjectively reported he was feeling much better and rated his overall discomfort 2/10. Reevaluation of his temperature re-showed that he was afebrile. Plan: Patient was encouraged to alternate ibuprofen and acetaminophen every 3 hours. Patient was encouraged to stay well-hydrated with increased clear fluids. Patient was encouraged to consider using a liquid/mechanical soft diet until resolution of throat discomfort. Patient was encouraged to contact his PCP and request follow-up care and treatment. Patient was encouraged return ED for worsening/uncontrolled throat pain, inability to swallow, painful talking, drooling, uncontrolled fevers, worsening cough, coughing up blood or any new/concerning symptoms.
== END 2017-07-07 16:50 | disposition home or self-care (01) ==
LOC: C.EDB 13:33 → C.EDC 16:50
DX: J02.9 Acute pharyngitis, unspecified (principal); F17.200 Nicotine dependence, unspecified, uncomplicated; Z90.89 Acquired absence of other organs

== ENCOUNTER 2017-10-01 18:22 | Emergency (ER) | payer OTHER ==
[~2017-10-01] VITALS: Ht 190.5 cm; Wt 91.6 kg
[~2017-10-01 18:22] MED LIST changes: +ACET-1311 PO; -AMOX500C3 PO; +IBUP-1459 PO; -PRED50TA PO
[2017-10-01 18:26] VITALS: TEMP 36.7; Ht 190.5 cm; Wt 91.6 kg
--- NOTE | 2017-10-01 18:54 | EMERGENCY ROOM VISIT NOTE ---
ED Visit Note First contact with patient: 18:34 CHIEF COMPLAINT: Rash HISTORY OF PRESENT ILLNESS: This 22-year-old male patient presents to the emergency department, ambulatory, complaining of a rash on his lower abdomen and right elbow which started 1 week ago. The patient denies fever, chills, nausea, or loss of appetite. They deny any URI symptoms. The patient has tried no OTC remedies. The patient states the rash is itching and rates the discomfort as 0/10. No change in food, soap, detergents, or other environmental factors. No new medications. No weakness or numbness. The patient is sexually active with many females. He states he did have sex with a female several hours prior to noticing the rash. He did not use protection. He denies any painful intercourse, penile discharge, or burning with urination. REVIEW OF SYSTEMS: A 6 system review of systems was completed with positives and pertinent negatives listed in the HPI. ALLERGIES: None MEDICATIONS: None PMH: None SOCIAL HISTORY: The patient lives locally with family. He denies drug, tobacco use. He admits to occasional alcohol use. PHYSICAL EXAM: Vital Signs: Reviewed Nurse's notes, vital signs stable. GENERAL : This is a 22-year-old white male, in no acute distress, well-developed, well- nourished. SKIN: There is a vesicular appearing, erythematous rash on the lower abdomen and right posterior elbow. There are no excoriations. No active drainage. Capillary refill less than 2 seconds. EMERGENCY DEPARTMENT COURSE: The patient was seen and evaluated as above. The rash appears vesicular and given the patient's sexual history, there is concern for possible herpetic lesion, however, the location of the rash is not consistent with HSV or shingles. I suspect a dermatitis-like lesion, however, culture was obtained and sent to the lab for testing and confirmation. I did offer treatment with anti-viral medications, but the patient declines at this time. I did offer other STD testing, but he declines this as well, and states he prefers to follow-up with his PCP on Tuesday at his appointment. Discharge instructions reviewed. All questions were answered to the patient's satisfaction. The patient was discharged home in good condition. I attest that I have personally reviewed the patient's current medication list. Blood Pressure Screening: Patient was found to have a slightly elevated blood pressure due to circumstances. I do not believe that the patient requires hypertension monitoring. Differential diagnosis includes fungal, scabies, herpes, STD, dermatitis, eczema , cellulitis, abscess, viral, musculoskeletal etiology, hepatic abnormality, malignancy, and others DIAGNOSIS: Dermatitis The chart was completed utilizing [email or web address] Speech voice recognition software. Grammatical errors, random word insertions, pronoun errors, and incomplete sentences are an occasional consequence of this system due to software limitations, ambient noise, and hardware issues. Any formal questions or concerns about the content, text, or information contained within the body of this dictation should be directly addressed to the provider for clarification. Problem List Surgical Problems: (1) Hx of tonsillectomy Status: Resolved Current/Historical Medications Scheduled [Protein Shakes], 1 PO UD Scheduled PRN Loratadine (Allergy Relief), 1 TAB PO DAILY PRN for Allergic Reaction Allergies Coded Allergies: Cat Dander (Verified Allergy, Severe, SWOLLEN, RED, ITCHY EYES. SNEEZES, ) Vital Signs Date Time Temp Pulse Resp B/P (MAP) Pulse Ox O2 Delivery O2 Flow Rate FiO2 10/01/17 20:01 75 18 141/74 99 10/01/17 18:26 36.7 77 18 159/86 99 Room Air Laboratory Results Test 10/01/17 19:45 Departure Information Impression Primary Impression: Dermatitis Dispostion Home / Self-Care Condition GOOD Referrals Rafael Hinton D.O. (PCP) Patient Instructions ED Dermatitis Non Specific Rash, My [facility] Additional Instructions He was seen and evaluated in the emergency department today for a rash. As discussed, we are on certain as to the etiology of the rash, however a culture was obtained for herpes testing. This should be available in 48-72 hours. You may contact the hospital or your primary care provider to obtain results of this testing. Please keep the area clean and dry. You may use regular soap and water. You may use antibiotic ointment and a barrier between the rash and your pants to avoid friction in that area. I do recommend warm soaks to help with drainage and discomfort. You may take benadryl 25-50 mg every 4-6 hours for itchiness. Ibuprofen(Motrin, Advil) may be used for fever or pain. Use 600mg every six hours as needed. Take with food. Avoid using more than 2400mg in a 24 hour period. Do not use 2400mg per day for more than three consecutive days without physician direction. Prolonged inappropriate use can lead to stomach upset or ulcers. (AND/OR) Acetaminophen(Tylenol) may be used for fever or pain. Use 1000mg every six hours as needed. Avoid using more than 3000mg in a 24 hour period. Follow-up with your PCP at your appointment on Tuesday. Return to the ED for any significant, rapidly spreading rash, purulent drainage , redness, significant pain, or systemic symptoms.
[2017-10-01] MEDS ORDERED: PROTEIN SHAKES PO (19:09)
[2017-10-01] MEDS ORDERED: LORA-554 PO (19:09)
[2017-10-01 20:01] VITALS: BP 141/74; PULSE 75; O2SAT 99
[2017-10-05 14:24] LABS: HERPES SIMPLEX VIRUS CULT NOT ISOLATED (NOT ISOLATED)
== END 2017-10-01 20:02 | disposition home or self-care (01) ==
LOC: C.EDB 18:23 → C.EDD 20:02
DX: L30.9 Dermatitis, unspecified (principal); Z91.048 Other nonmedicinal substance allergy status

== ENCOUNTER 2017-10-05 18:18 | Emergency (ER) | payer OTHER ==
[~2017-10-05] VITALS: Ht 190.5 cm; Wt 87.9 kg
[~2017-10-05 18:18] MED LIST changes: -ACET-1311 PO; -IBUP-1459 PO; +LORA-554 PO; +PROTEIN SHAKES PO
[2017-10-05 18:21] VITALS: TEMP 37.2; Ht 190.5 cm; Wt 87.9 kg
[2017-10-05] MEDS ORDERED: KETOROLAC TROMETHAMINE 30 MG/ML VIAL IV STA (18:30)
[2017-10-05] MEDS ORDERED: BENZONATATE 100MG CAP PO ONE (18:30)
--- NOTE | 2017-10-05 18:58 | DIAGNOSTIC IMAGING REPORT ---
SINGLE VIEW CHEST CLINICAL HISTORY: Atypical chest pain. FINDINGS: An AP, portable, upright chest radiograph is compared to study dated 07/07/2017. The examination is degraded by portable technique and patient rotation. The cardiomediastinal silhouette is unremarkable. The lungs and pleural spaces are clear. No pneumothorax is seen. The bony thorax is grossly intact. IMPRESSION: No active disease in the chest. Electronically signed by: Arturo Cash M.D. 10/05/2017 6:57 PM Dictated Date/Time: 10/05/2017 6:56 PM
[2017-10-05 19:21] LABS: BASO % 0.1 %; BASO ABS # 0.01 K/uL (0-0.2); EOS % 2.1 %; EOS ABS # 0.17 K/uL (0-0.5); HEMATOCRIT 46.7 % (42-52); HEMOGLOBIN 15.9 g/dL (14.0-18.0); IG# 0.02 K/uL (0.00-0.02); LYMPH % 12.6 %; MEAN PLATELET VOLUME 9.1 fL (7.4-10.4); MONO ABS # 1.19 K/uL (0.11-0.59); NEUT % 69.9 %; NEUT ABS # 5.55 K/uL (1.4-6.5); PLATELET COUNT 165 K/uL (130-400); RED CELL DISTRIBUTION WIDTH CV 12.6 % (11.5-14.5); RED CELL DISTRIBUTION WIDTH SD 42.1 fL (36.4-46.3); WHITE BLOOD COUNT 7.94 K/uL (4.8-10.8)
[2017-10-05] MEDS ORDERED: NAPR1TAB9 PO (19:24)
[2017-10-05 19:40] LABS: CALCIUM 9.1 mg/dl (8.5-10.1); CREATININE 1.34 mg/dl (0.60-1.40); POTASSIUM 3.9 mmol/L (3.5-5.1)
[2017-10-05 19:45] LABS: INFLUENZA B ANTIGEN Neg for Influ B (NEG)
[2017-10-05] MEDS ORDERED: BENZ100C18 PO (20:00)
[2017-10-05 20:01] VITALS: BP 123/78
[2017-10-05 20:06] VITALS: PULSE 86; O2SAT 97
--- NOTE | 2017-10-05 20:38 | EMERGENCY ROOM VISIT NOTE ---
History Report prepared by Nathalie: Jonathan Diaz Under the Supervision of: Dr. Jerel Harrison D.O. First contact with patient: 18:24 Chief Complaint: CARDIAC ASSESSMENT Stated Complaint: CHEST PAINS, SORE THROAT, FATIGUE History of Present Illness The patient is a 22 year old male who presents to the Emergency Room with complaints of constant central chest pain beginning a few days ago. The patient rates his pain as an 8/10 in severity and describes it as "sharp". His pain worsened last night. His pain is worsened with breathing and coughing. The patient also complains of a dry cough, runny nose and sore throat. His cough began at the same time as his chest pain. He notes that he was seen in the ED earlier this week for a rash of his low abdomen. Pt denies headache, change in vision, fevers, shortness of breath, nausea, vomiting, diarrhea, pain with urination, and melena. Patient denies diabetes, hypertension, hyperlipidemia, CAD, history of sudden at a young age, and smoking. Patient denies swelling of calves, recent trips, history of immobilization or recent surgery, prior history of DVT, hemoptysis, history of malignancy, history of smoking, or control/estrogen use. Source of History: patient Onset: A few days ago Position: chest (central) Symptom Intensity: Quality: sharp Timing: constant Modifying Factors (Worsening): breathing, other (coughing) Associated Symptoms: + sorethroat, + cough, No fevers, No headache, No nausea, No vomiting, No abdominal pain, No melena, No diarrhea, No urinary symptoms Note: Positive: runny nose. Review of Systems See HPI for pertinent positives & negatives. A total of 10 systems reviewed and were otherwise negative. Past Medical & Surgical Surgical Problems: (1) Hx of tonsillectomy Family History No pertinent family history stated. Social History Smoking Status: Never Smoker Alcohol Use: occasionally Drug Use: none Marital Status: single Occupation Status: [employer] student Current/Historical Medications Scheduled Benzonatate (Tessalon Perles), 1 CAP PO TID [Protein Shakes], 1-2 PO DAILY Scheduled PRN Naproxen (Aleve), 660 MG PO DAILY PRN for Pain Allergies Coded Allergies: Cat Dander (Verified Allergy, Severe, SWOLLEN, RED, ITCHY EYES. SNEEZES, ) Physical Exam Vital Signs Date Time Temp Pulse Resp B/P (MAP) Pulse Ox O2 Delivery O2 Flow Rate FiO2 10/05/17 20:06 86 16 97 10/05/17 20:01 123/78 10/05/17 19:36 109 16 98 10/05/17 19:31 126/80 10/05/17 19:06 89 18 99 10/05/17 19:01 142/88 99 10/05/17 19:00 87 14 10/05/17 18:57 134/79 10/05/17 18:45 90 17 99 10/05/17 18:43 99 Room Air 10/05/17 18:21 37.2 106 18 120/73 99 Room Air Physical Exam GENERAL: Sitting up in bed, alert, well appearing, well nourished, no distress, non-toxic. Dry, non-productive cough noted. EYE EXAM: normal conjunctiva. OROPHARYNX: no exudate, no erythema, lips, buccal mucosa, and tongue normal and mucous membranes are moist NECK: supple, no nuchal rigidity, no adenopathy, non-tender LUNGS: Clear to auscultation. Normal chest wall mechanics HEART: no murmurs, S1 normal and S2 normal CHEST: Acute reproducible tenderness on palpation mid-sternal and just lateral. Also present with internal rotation of upper extremities. ABDOMEN: abdomen soft, non-tender, normo-active bowel sounds, no masses, no rebound or guarding. BACK: Back is symmetrical on inspection and there is no deformity, no midline tenderness, no CVA tenderness. SKIN: no rashes and no bruising UPPER EXTREMITIES: upper extremities are grossly normal. LOWER EXTREMITIES: Calves are equal bilaterally. NEURO EXAM: Normal sensorium, cranial nerves II-XII grossly intact, normal speech, no gross weakness of arms, no gross weakness of legs. Medical Decision & Procedures ER Provider Diagnostic Interpretation: Radiology results as stated below per my review and the radiologist's interpretation: SINGLE VIEW CHEST FINDINGS: An AP, portable, upright chest radiograph is compared to study dated 07/07/2017. The examination is degraded by portable technique and patient rotation. The cardiomediastinal silhouette is unremarkable. The lungs and pleural spaces are clear. No pneumothorax is seen. The bony thorax is grossly intact. IMPRESSION: No active disease in the chest. Electronically signed by: Arturo Cash M.D. 10/05/2017 6:57 PM Laboratory Results 10/05/17 18:55 Red Blood Count 5.13, Mean Corpuscular Volume 91.0, Mean Corpuscular Hemoglobin 31.0, Mean Corpuscular Hemoglobin Concent 34.0, Mean Platelet Volume 9.1, Neutrophils (%) (Auto) 69.9, Lymphocytes (%) (Auto) 12.6, Monocytes (%) (Auto) 15.0, Eosinophils (%) (Auto) 2.1, Basophils (%) (Auto) 0.1, Neutrophils # (Auto ) 5.55, Lymphocytes # (Auto) 1.00, Monocytes # (Auto) 1.19, Eosinophils # (Auto ) 0.17, Basophils # (Auto) 0.01 10/05/17 18:55 Test 10/05/17 14:00 10/05/17 18:55 Influenza Type A Antigen Neg for Influ A (NEG) Influenza Type B Antigen Neg for Influ B (NEG) White Blood Count 7.94 K/uL (4.8-10.8) Red Blood Count 5.13 M/uL (4.7-6.1) Hemoglobin 15.9 g/dL (14.0-18.0) Hematocrit 46.7 % (42-52) Mean Corpuscular Volume 91.0 fL (80-100) Mean Corpuscular Hemoglobin 31.0 pg (25-34) Mean Corpuscular Hemoglobin Concent 34.0 g/dl (32-36) Platelet Count 165 K/uL (130-400) Mean Platelet Volume 9.1 fL (7.4-10.4) Neutrophils (%) (Auto) 69.9 % Lymphocytes (%) (Auto) 12.6 % Monocytes (%) (Auto) 15.0 % Eosinophils (%) (Auto) 2.1 % Basophils (%) (Auto) 0.1 % Neutrophils # (Auto) 5.55 K/uL (1.4-6.5) Lymphocytes # (Auto) 1.00 K/uL (1.2-3.4) Monocytes # (Auto) 1.19 K/uL (0.11-0.59) Eosinophils # (Auto) 0.17 K/uL (0-0.5) Basophils # (Auto) 0.01 K/uL (0-0.2) RDW Standard Deviation 42.1 fL (36.4-46.3) RDW Coefficient of Variation 12.6 % (11.5-14.5) Immature Granulocyte % (Auto) 0.3 % Immature Granulocyte # (Auto) 0.02 K/uL (0.00-0.02) Anion Gap 6.0 mmol/L (3-11) Est Creatinine Clear Calc Drug Dose 103.3 ml/min Estimated GFR () 86.5 Estimated GFR (Non- 74.7 BUN/Creatinine Ratio 14.2 (10-20) Calcium Level 9.1 mg/dl (8.5-10.1) Laboratory results per my review. Medications Administered Medications (Trade) Dose Ordered Sig/Velia Route Start Time Stop Time Status Last Admin Dose Admin Ketorolac Tromethamine (Toradol Inj) 30 mg NOW STAT IV 10/05/17 18:30 10/05/17 18:31 DC 10/05/17 19:00 30 MG Benzonatate (Tessalon Perles Cap) 100 mg NOW ONCE PO 10/05/17 18:30 10/05/17 18:31 DC 10/05/17 19:00 100 MG ECG Per My Interpretation Indication: chest pain Rate (beats per minute): 84 Rhythm: sinus rhythm Findings: no ectopy, other (Normal axis. Short OH interval. ) Comparison ECG Date: no prior available ED Course ED COURSE: Vital signs were reviewed and showed tachycardia. The patients medical record was reviewed The above diagnostic studies were performed and reviewed. ED treatments and interventions as stated above. 1825: The patient was evaluated in room B12B. A complete history and physical examination was performed. 1829: Ordered Tessalon Perles Cap 100 mg PO, Toradol Inj 30 mg IV. 1946: Upon reevaluation, the patient is resting comfortably. I discussed my findings with the patient and he understands and agrees with the treatment plan. Based on the patients age, coexisting illnesses, exam and lab findings the decision to treat as an outpatient was made. The patient remained stable while under my care. The patient appeared well at the time of discharge. Medical Decision Differential diagnoses includes but is not limited to acute coronary syndrome, myocardial infarction, pericarditis, pulmonary embolus, aortic dissection, pneumonia, pneumothorax, musculoskeletal, shingles, esophageal. Patient is a 20-year-old male who presents the ER for chest pain which has been persistent since last night. Patient has had a cough for the past 3-5 days. Also admits to runny nose and sore throat. No cardiac risk factors or PE risk factors. His pain is completely reproducible on exam. EKG was unremarkable with the exception of short OH. CBC along with BMP was unremarkable. Chest x- ray was unremarkable. Patient was given Toradol and felt significantly better. Do favor this is muscle skeletal. Discussed with Pt concerning signs and symptoms to watch out for. Pt was instructed to follow up with their PCP and discussed with the patient their option to return to the ED at anytime for persistent or worsening symptoms. The appropriate anticipatory guidance and out- patient management, including indications for return to the emergency department , were explained at length to the patient and understood. Medication Reconcilliation Current Medication List: was personally reviewed by me Blood Pressure Screening Patient's blood pressure: Normal blood pressure Blood pressure disposition: Did not require urgent referral Impression Primary Impression: Chest pain Scribe Attestation The scribe's documentation has been prepared under my direction and personally reviewed by me in its entirety. I confirm that the note above accurately reflects all work, treatment, procedures, and medical decision making performed by me. Departure Information Dispostion Home / Self-Care Prescriptions Benzonatate (TESSALON PERLES) 100 Mg Cap 1 CAP PO TID for 10 Days, #30 CAP Prov: Jerel Harrison, 10/05/17 Referrals Rafael Hinton D.O. (PCP) Forms IMPORTANT VISIT INFORMATION Patient Instructions Chest Pain - [facility], [facility] Additional Instructions Please follow up with your primary care doctor with in the next 24 hours. Any worsening of your symptoms, please return to the ED immediately. This includes any fevers greater than 100.4, worsening pain, chest pain, shortness breath, persistent nausea, vomiting, unable to eat or drink, or any other concerning signs or symptoms from your standpoint. Please take Tylenol or Motrin as needed for pain. Problem Qualifiers Primary Impression: Chest pain Chest pain type: unspecified Qualified Codes: R07.9 - Chest pain, unspecified
== END 2017-10-05 20:11 | disposition home or self-care (01) ==
LOC: C.EDB 18:19
DX: R07.9 Chest pain, unspecified (principal)